=== PATIENT | male | born 1960 | race Two or more races ===

== ENCOUNTER 2018-06-14 10:37 | Inpatient (IN) | payer OTHER, BC ==
[~2018-06-14] VITALS: Ht 180.3 cm; Wt 108.9 kg
[~2018-06-14 10:37] MED LIST: ASPI-231 PO; CARV25TA PO; CINACALCET; FURO80TA PO; INSUINJ37 SC; LIDOCAINE CREAM; MULT-48; SEVE800T8 PO; SITA25TA3 PO
[2018-06-14] MEDS ORDERED: ONDANSETRON HCL 4 MG/2 ML VIAL IV ONE (11:15)
[2018-06-14 11:26] LABS: Basophils # (auto) 0 uL; Basophils % (auto) 0.3 % (0.0-2.0); Eosinophils # (auto) 0 uL; Eosinophils % (auto) 0.4 % (0.0-7.0); Hematocrit 33.9 % (41.0-53.0); Hemoglobin 12.1 g/dL (13.5-17.5); Lymphocytes # (auto) 0.3 uL; Lymphocytes % (auto) 6.6 % (10.0-50.0); Mean Corpuscular Hemoglobin 33.4 pg (28.0-32.0); Mean Corpuscular Hgb Conc. 35.5 g/dL (32.0-36.0); Mean Corpuscular Volume 94.1 fL (80.0-100.0); Monocytes # (auto) 0.4 uL; Monocytes % (auto) 8.2 % (0.0-12.0); Neutrophils # (auto) 4.3 uL; Neutrophils % (auto) 84.5 % (37.0-80.0); Nucleated Red Blood Cells % 0.1 %; Platelet Count (auto) 123 10^3/uL (140-450); Red Blood Cells 3.61 10^6/uL (4.5-5.90); Red Cell Distribution Width 13.2 % (11.8-14.3)
[2018-06-14 11:44] LABS: Albumin 3.8 g/dL (3.4-5.0); BUN/Creatinine Ratio 4.1; Bilirubin, Total 1.6 mg/dL (0.2-1.0); Calcium 8.2 mg/dL (8.5-10.1); Magnesium 2.1 mg/dL (1.6-2.6); Potassium 3.7 mmol/L (3.5-5.1); Total Protein 8.2 g/dL (6.4-8.2)
[2018-06-14] MEDS ORDERED: ACETAMINOPHEN 500 MG TAB PO ONE (12:00)
[2018-06-14 13:05] VITALS: BP 105/53
[2018-06-14] MEDS ORDERED: VANCOMYCIN PER PHARMACY 0 MG IV SCH (13:45)
[2018-06-14] MEDS ORDERED: DEXTROSE (50%) 50ML SYRG IV PRN (13:45)
[2018-06-14] MEDS ORDERED: cefTRIAXone 1GM/10ml IVPUSH 10 ML IV ONE (13:45)
[2018-06-14] MEDS ORDERED: SODIUM CHLORIDE 0.9% 1,000 ML IV SCH (13:50)
[2018-06-14] MEDS ORDERED: ACETAMINOPHEN 325 MG TAB PO PRN (14:00)
[2018-06-14] MEDS ORDERED: ONDANSETRON HCL 4 MG/2 ML VIAL IV PRN (14:00)
[2018-06-14] MEDS ORDERED: NITROGLYCERIN 0.4 MG SL TAB SL PRN (14:00)
[2018-06-14] MEDS ORDERED: DOCUSATE SOD 100 MG CAP PO PRN (14:00)
[2018-06-14] MEDS ORDERED: TEMAZEPAM 15 MG CAP PO PRN (14:00)
[2018-06-14] MEDS ORDERED: HYDROcodone-ACET 5/325MG TAB PO PRN (14:00)
[2018-06-14] MEDS ORDERED: LIDOCAINE HCL 5 % TOP OINT 35 GM TOP PRN (14:00)
[2018-06-14] MEDS ORDERED: MORPHINE SULF INJ 2 MG/ML SYRINGE 1ML IV PRN ×2 (14:00)
[2018-06-14] MEDS ORDERED: VANCOMYCIN 1,250 MG in D5W 5% 250 ML IV ONE (14:30)
[2018-06-14] MEDS ORDERED: FAMOTIDINE 20 MG TAB PO SCH (14:30)
[2018-06-14] MEDS ORDERED: InsuLIN REG 1unit/0.01ml Soln (100units/ml) SC SCH (17:00)
[2018-06-14] MEDS ORDERED: ACCU-CHEK COMFORT CURVE STRIP VI SCH (17:00)
[2018-06-14] MEDS ORDERED: CALCIUM ACETATE 667 MG CAP PO SCH (18:00)
[2018-06-14] MEDS ORDERED: SEVELAMER 800 MG TAB PO SCH (18:00)
[2018-06-14] MEDS ORDERED: CITALOPRAM HYDROBR 20 MG TAB PO SCH (22:00)
[2018-06-14] MEDS ORDERED: ATORVASTATIN 20 MG TAB PO SCH (22:00)
[2018-06-15] MEDS ORDERED: cefTRIAXone 1GM/10ml IVPUSH 10 ML IV SCH (09:00)
[2018-06-15] MEDS ORDERED: MULTIPLE VITAMIN TAB PO SCH (10:00)
[2018-06-15] MEDS ORDERED: NIFEdipine ER 30 MG TAB PO SCH (10:00)
[2018-06-15] MEDS ORDERED: ASPirin-EC 81 mg tab PO SCH (10:00)
[2018-06-15] MEDS ORDERED: FUROSEMIDE 40 MG TAB PO SCH (10:00)
== END 2018-06-14 21:10 | disposition left against medical advice (07) | DRG 871 ==
LOC: EDBD 10:37 → ER 10:37 → TELE 10:38 → TELE-CENTR 20:51
PROVIDERS: ADMIT Internal Medicine; ATTEND Internal Medicine
DX: A41.9 Sepsis, unspecified organism (principal); N18.6 End stage renal disease; I13.2 Hypertensive heart and chronic kidney disease with heart failure and with stage 5 chronic kidney disease, or end stage renal disease; I48.92 Unspecified atrial flutter; I50.32 Chronic diastolic (congestive) heart failure; D63.8 Anemia in other chronic diseases classified elsewhere; E11.21 Type 2 diabetes mellitus with diabetic nephropathy; E11.22 Type 2 diabetes mellitus with diabetic chronic kidney disease; E83.51 Hypocalcemia; E86.0 Dehydration; F32.9 Major depressive disorder, single episode, unspecified; I70.90 Unspecified atherosclerosis; I25.10 Atherosclerotic heart disease of native coronary artery without angina pectoris; T62.8X1A Toxic effect of other specified noxious substances eaten as food, accidental (unintentional), initial encounter; I48.91 Unspecified atrial fibrillation; K52.9 Noninfective gastroenteritis and colitis, unspecified; N28.1 Cyst of kidney, acquired; Z80.7 Family history of other malignant neoplasms of lymphoid, hematopoietic and related tissues; Z82.49 Family history of ischemic heart disease and other diseases of the circulatory system; Z83.3 Family history of diabetes mellitus; I25.2 Old myocardial infarction; Z95.1 Presence of aortocoronary bypass graft; Z99.2 Dependence on renal dialysis; Z90.49 Acquired absence of other specified parts of digestive tract; Z88.8 Allergy status to other drugs, medicaments and biological substances; Z79.899 Other long term (current) drug therapy; Z79.82 Long term (current) use of aspirin; Y92.89 Other specified places as the place of occurrence of the external cause
CPT/HCPCS: 36415; 71045; 74176; 80053; 83036; 83605; 83690; 83735; 83880; 84443; 84484; 85025; 87040; 87077; 87186; 93005; 94761; 96361; 96374; 96375; J0696; J2405; J7060

== ENCOUNTER 2019-12-14 10:05 | Inpatient (IN) | payer OTHER, BC ==
[~2019-12-14] VITALS: Ht 180.3 cm; Wt 121.8 kg
[~2019-12-14 10:05] MED LIST changes: +FURO1TAB32 PO; -FURO80TA PO
[2019-12-14] MEDS ORDERED: dilTIAZem 25 MG/5 ML VIAL IV ONE (10:45)
[2019-12-14] MEDS ORDERED: SODIUM CHLORIDE 0.9% 1,000 ML IV ONE (10:52)
[2019-12-14 11:21] LABS: Basophils # (auto) 0 uL; Basophils % (auto) 0.4 % (0.0-2.0); Eosinophils # (auto) 0.2 uL; Eosinophils % (auto) 1.6 % (0.0-7.0); Hematocrit 33.2 % (41.0-53.0); Hemoglobin 11.3 g/dL (13.5-17.5); Lymphocytes # (auto) 0.6 uL; Mean Corpuscular Hgb Conc. 34.1 g/dL (32.0-36.0); Mean Corpuscular Volume 93.8 fL (80.0-100.0); Monocytes # (auto) 0.8 uL; Monocytes % (auto) 8.3 % (0.0-12.0); Neutrophils # (auto) 8.6 uL; Neutrophils % (auto) 83.7 % (37.0-80.0); Nucleated Red Blood Cells % 0.1 %; Platelet Count (auto) 215 10^3/uL (140-450); Red Blood Cells 3.54 10^6/uL (4.5-5.90); Red Cell Distribution Width 13.2 % (11.8-14.3); White Blood Cell 10.2 10^3/uL (4.4-10.8)
[2019-12-14 11:39] LABS: Albumin 2.8 g/dL (3.4-5.0); Calcium 7.8 mg/dL (8.5-10.1); INR 1.18 (0.9-1.15); Partial Thromboplastin Time 42.4 sec (23.64-32.05); Potassium 3.5 mmol/L (3.5-5.1)
[2019-12-14 11:43] LABS: Bilirubin, Total 1.5 mg/dL (0.2-1.0); Total Protein 7.3 g/dL (6.4-8.2)
[2019-12-14] MEDS: MAGNESIUM SULFATE 1GM/100ML 100 ML IV SCH ×2 (11:46→12:57)
[2019-12-14 11:48] LABS: Magnesium 1.9 mg/dL (1.6-2.6)
[2019-12-14] MEDS ORDERED: OSELTAMIVIR 30 MG CAP PO ONE (14:00)
[2019-12-14] MEDS ORDERED: TEMAZEPAM 15 MG CAP PO PRN (14:00)
[2019-12-14] MEDS ORDERED: AMIODARONE HCL 150 MG in D5W 5% 100 ML IV ONE (14:00)
[2019-12-14] MEDS ORDERED: DEXTROSE (50%) 50ML SYRG IV PRN (14:00)
[2019-12-14] MEDS ORDERED: cefTRIAXone 1GM/50ML D5W 50 ML IV ONE (14:00)
[2019-12-14] MEDS ORDERED: ACETAMINOPHEN 500 MG TAB PO PRN (14:00)
[2019-12-14] MEDS ORDERED: ALBUTEROL SULF 2.5 MG/0.5ML(0.5%) NEB SOLN NEB PRN (14:00)
[2019-12-14] MEDS ORDERED: NITROGLYCERIN 0.4 MG SL TAB SL PRN (14:00)
[2019-12-14] MEDS ORDERED: AZITHROMYCIN 500MG/ 250ML 250 ML IV ONE ×2 (14:00→15:00)
[2019-12-14] MEDS ORDERED: MORPHINE SULF INJ 2 MG/ML SYRINGE 1ML IV PRN ×2 (14:00)
[2019-12-14] MEDS ORDERED: ADENOSINE 6 MG/2 ML INJ IV ONE (14:00)
[2019-12-14] MEDS ORDERED: AMIODARONE HCL 900 MG in DEXTROSE 500 ML IV SCH (14:07)
[2019-12-14 14:12] VITALS: BP 98/59
[2019-12-14] MEDS: SODIUM CHLOR 0.9% PF (SALINE LOCK) 10ML VIAL/SYR IV SCH ×2 (14:17→21:56)
[2019-12-14] MEDS ORDERED: IOHEXOL 350 MG/ML 100ML IJ ONE (15:19)
[2019-12-14 15:24] LABS: Basophils # (auto) 0 uL; Basophils % (auto) 0.5 % (0.0-2.0); Eosinophils # (auto) 0.1 uL; Eosinophils % (auto) 1.8 % (0.0-7.0); Hemoglobin 10.6 g/dL (13.5-17.5); Lymphocytes # (auto) 0.5 uL; Lymphocytes % (auto) 5.7 % (10.0-50.0); Mean Corpuscular Hemoglobin 33.4 pg (28.0-32.0); Mean Corpuscular Hgb Conc. 35.3 g/dL (32.0-36.0); Mean Corpuscular Volume 94.5 fL (80.0-100.0); Monocytes # (auto) 0.7 uL; Neutrophils # (auto) 6.8 uL; Nucleated Red Blood Cells % 0.1 %; Platelet Count (auto) 180 10^3/uL (140-450); Red Blood Cells 3.17 10^6/uL (4.5-5.90); Red Cell Distribution Width 13.2 % (11.8-14.3); White Blood Cell 8.2 10^3/uL (4.4-10.8)
[2019-12-14 15:42] LABS: INR 1.22 (0.9-1.15); Partial Thromboplastin Time 43.1 sec (23.64-32.05)
[2019-12-14 16:15] VITALS: BP 159/88
[2019-12-14] MEDS: ACCU-CHEK COMFORT CURVE STRIP VI SCH ×2 (17:09→21:23)
[2019-12-14] MEDS: HEPARIN DRIP/D5W 100UNITS/ML 250 ML IV SCH (17:17)
[2019-12-14] MEDS: InsuLIN REG 1unit/0.01ml Soln (100units/ml) SC SCH ×2 (17:23→21:57)
[2019-12-14] MEDS: ALBUTEROL SULF 2.5 MG/0.5ML(0.5%) NEB SOLN NEB SCH (18:17)
[2019-12-14] MEDS: IPRATROPIUM BROM 0.5 MG/2.5ML INH SOL NEB SCH (18:17)
[2019-12-14] MEDS ORDERED: ATOR40TA52 PO (19:01)
[2019-12-14] MEDS ORDERED: FURO1TAB31 PO (19:02)
[2019-12-14] MEDS ORDERED: NIFE1TAB31 PO (19:02)
[2019-12-14] MEDS ORDERED: DRON400T PO (19:02)
[2019-12-14] MEDS ORDERED: SEVE800T8 PO (19:02)
[2019-12-14] MEDS ORDERED: VENL25TA2 PO (19:02)
[2019-12-14] MEDS ORDERED: METO25TA93 PO (19:02)
[2019-12-14] MEDS ORDERED: APIX2.5T PO (19:02)
[2019-12-14 20:09] VITALS: BP 107/62
[2019-12-14 20:24] LABS: INR 1.29 (0.9-1.15)
[2019-12-14 20:27] LABS: Partial Thromboplastin Time > 139.0 sec (23.64-32.05)
[2019-12-14] MEDS: ATORVASTATIN 20 MG TAB PO SCH (21:56)
[2019-12-14] MEDS: INSULIN LANTUS (GLARGINE) 1 /0.01ml (100units/ml) SC SCH (21:57)
[2019-12-14] MEDS ORDERED: APIXABAN 5 MG TAB PO SCH (22:00)
[2019-12-14] MEDS ORDERED: OSELTAMIVIR 30 MG CAP PO SCH (22:00)
[2019-12-14] MEDS: AMIODARONE HCL 900 MG in DEXTROSE 500 ML IV SCH (22:18)
[2019-12-15] VITALS: BP_SYST 108; BP_SYST 118; BP_DIAS 63; BP_DIAS 98
[2019-12-15] MEDS: ALBUTEROL SULF 2.5 MG/0.5ML(0.5%) NEB SOLN NEB SCH ×4 (00:10→19:25)
[2019-12-15] MEDS: IPRATROPIUM BROM 0.5 MG/2.5ML INH SOL NEB SCH ×4 (00:10→19:24)
[2019-12-15 03:18] LABS: Partial Thromboplastin Time > 139.0 sec (23.64-32.05)
[2019-12-15 03:37] VITALS: BP 149/87
[2019-12-15] MEDS: HEPARIN DRIP/D5W 100UNITS/ML 250 ML IV SCH ×2 (03:43→11:29)
[2019-12-15] MEDS: SODIUM CHLOR 0.9% PF (SALINE LOCK) 10ML VIAL/SYR IV SCH ×3 (06:04→22:31)
[2019-12-15] MEDS: ACCU-CHEK COMFORT CURVE STRIP VI SCH ×4 (06:38→22:30)
[2019-12-15] MEDS: InsuLIN REG 1unit/0.01ml Soln (100units/ml) SC SCH ×4 (06:39→22:31)
[2019-12-15 07:40] VITALS: BP 127/74
[2019-12-15] MEDS: SEVELAMER 800 MG TAB PO SCH (08:35)
[2019-12-15] MEDS: SITAGLIPTIN PHOSPHATE 25 MG PO SCH (10:00)
[2019-12-15] MEDS ORDERED: OPTISON 3ml Vial for INJ IV ONE (10:06)
[2019-12-15 10:31] LABS: Basophils # (auto) 0 uL; Basophils % (auto) 0.6 % (0.0-2.0); Eosinophils # (auto) 0.3 uL; Eosinophils % (auto) 4.1 % (0.0-7.0); Hematocrit 28.4 % (41.0-53.0); Hemoglobin 9.6 g/dL (13.5-17.5); Lymphocytes # (auto) 0.5 uL; Lymphocytes % (auto) 6.8 % (10.0-50.0); Mean Corpuscular Hemoglobin 32.1 pg (28.0-32.0); Mean Corpuscular Hgb Conc. 33.8 g/dL (32.0-36.0); Monocytes # (auto) 0.7 uL; Monocytes % (auto) 8.9 % (0.0-12.0); Neutrophils # (auto) 5.9 uL; Neutrophils % (auto) 79.6 % (37.0-80.0); Platelet Count (auto) 189 10^3/uL (140-450); Red Blood Cells 2.99 10^6/uL (4.5-5.90); Red Cell Distribution Width 13.1 % (11.8-14.3); White Blood Cell 7.4 10^3/uL (4.4-10.8)
[2019-12-15] MEDS: ASPirin 81 mg TAB PO SCH (10:52)
[2019-12-15] MEDS: CARVEDILOL 12.5 MG TAB PO SCH (10:52)
[2019-12-15] MEDS: FUROSEMIDE 40 MG/4 ML VIAL IV SCH (10:52)
[2019-12-15 10:55] LABS: Albumin 2.5 g/dL (3.4-5.0); BUN/Creatinine Ratio 4.7; Calcium 7.6 mg/dL (8.5-10.1); Potassium 3.9 mmol/L (3.5-5.1)
[2019-12-15 10:59] LABS: Bilirubin, Total 0.9 mg/dL (0.2-1.0); Total Protein 6.7 g/dL (6.4-8.2)
[2019-12-15] MEDS: NITROGLYCERIN 0.2MG/HR TOPICAL PATCH TD SCH (11:01)
[2019-12-15 11:21] LABS: INR 1.15 (0.9-1.15); Partial Thromboplastin Time 43.7 sec (23.64-32.05)
[2019-12-15 11:45] VITALS: BP 141/65
[2019-12-15 15:50] VITALS: BP 126/75
[2019-12-15] MEDS: AMIODARONE HCL 900 MG in DEXTROSE 500 ML IV SCH (18:04)
[2019-12-15 20:00] VITALS: BP 131/82
[2019-12-15 22:25] LABS: INR 1.14 (0.9-1.15); Partial Thromboplastin Time 50.2 sec (23.64-32.05)
[2019-12-15] MEDS: ATORVASTATIN 20 MG TAB PO SCH (22:31)
[2019-12-15] MEDS: INSULIN LANTUS (GLARGINE) 1 /0.01ml (100units/ml) SC SCH (22:31)
[2019-12-16] VITALS: BP 102/56
[2019-12-16] MEDS: IPRATROPIUM BROM 0.5 MG/2.5ML INH SOL NEB SCH ×4 (00:52→18:50)
[2019-12-16] MEDS: ALBUTEROL SULF 2.5 MG/0.5ML(0.5%) NEB SOLN NEB SCH ×4 (00:52→18:50)
[2019-12-16 04:02] VITALS: BP 102/56
[2019-12-16] MEDS: HEPARIN DRIP/D5W 100UNITS/ML 250 ML IV SCH (05:18)
[2019-12-16 05:30] LABS: Basophils # (auto) 0 uL; Basophils % (auto) 0.6 % (0.0-2.0); Eosinophils # (auto) 0.4 uL; Eosinophils % (auto) 5.6 % (0.0-7.0); Hematocrit 25.3 % (41.0-53.0); Hemoglobin 8.8 g/dL (13.5-17.5); Lymphocytes # (auto) 0.7 uL; Lymphocytes % (auto) 10.6 % (10.0-50.0); Mean Corpuscular Hemoglobin 32.4 pg (28.0-32.0); Mean Corpuscular Hgb Conc. 34.5 g/dL (32.0-36.0); Mean Corpuscular Volume 93.8 fL (80.0-100.0); Monocytes # (auto) 0.7 uL; Monocytes % (auto) 10.7 % (0.0-12.0); Neutrophils % (auto) 72.5 % (37.0-80.0); Nucleated Red Blood Cells % 0.2 %; Platelet Count (auto) 192 10^3/uL (140-450); White Blood Cell 6.9 10^3/uL (4.4-10.8)
[2019-12-16 05:41] LABS: INR 1.13 (0.9-1.15); Partial Thromboplastin Time 54.8 sec (23.64-32.05)
[2019-12-16 05:53] LABS: Potassium 4.1 mmol/L (3.5-5.1)
[2019-12-16 06:03] LABS: BUN/Creatinine Ratio 5.3; Calcium 7.4 mg/dL (8.5-10.1); Magnesium 2.1 mg/dL (1.6-2.6)
[2019-12-16] MEDS: SODIUM CHLOR 0.9% PF (SALINE LOCK) 10ML VIAL/SYR IV SCH ×3 (06:18→22:38)
[2019-12-16] MEDS: InsuLIN REG 1unit/0.01ml Soln (100units/ml) SC SCH ×4 (06:34→22:41)
[2019-12-16] MEDS: ACCU-CHEK COMFORT CURVE STRIP VI SCH ×4 (06:34→22:41)
[2019-12-16 07:46] VITALS: BP 122/77
[2019-12-16] MEDS: SEVELAMER 800 MG TAB PO SCH (08:00)
[2019-12-16] MEDS: SITAGLIPTIN PHOSPHATE 25 MG PO SCH (10:00)
[2019-12-16] MEDS: CARVEDILOL 12.5 MG TAB PO SCH ×2 (10:00→10:48)
[2019-12-16] MEDS: ASPirin 81 mg TAB PO SCH ×2 (10:00→10:47)
[2019-12-16] MEDS: FUROSEMIDE 40 MG/4 ML VIAL IV SCH (10:45)
[2019-12-16] MEDS: NITROGLYCERIN 0.2MG/HR TOPICAL PATCH TD SCH (10:46)
[2019-12-16 11:39] LABS: INR 1.14 (0.9-1.15)
[2019-12-16 11:40] VITALS: BP 125/77
[2019-12-16] MEDS ORDERED: AMIODARONE HCL 200 MG TAB PO ONE (15:30)
[2019-12-16 15:35] VITALS: BP 129/78
[2019-12-16 20:00] VITALS: BP 142/82
[2019-12-16] MEDS ORDERED: VENLAFAXINE HCL 37.5mg XR cap PO SCH (21:00)
[2019-12-16] MEDS ORDERED: METOPROLOL TARTRATE 25 MG TAB PO SCH (22:00)
[2019-12-16] MEDS ORDERED: APIXABAN 2.5 MG TAB PO SCH (22:00)
[2019-12-16] MEDS: AMIODARONE HCL 900 MG in DEXTROSE 500 ML IV SCH (22:38)
[2019-12-16] MEDS: AMIODARONE HCL 200 MG TAB PO SCH (22:38)
[2019-12-16] MEDS: ATORVASTATIN 20 MG TAB PO SCH (22:39)
[2019-12-16] MEDS: INSULIN LANTUS (GLARGINE) 1 /0.01ml (100units/ml) SC SCH (22:41)
[2019-12-17] VITALS (7 sets, daily range): BP systolic 106–144; BP diastolic 67–86
[2019-12-17] MEDS: IPRATROPIUM BROM 0.5 MG/2.5ML INH SOL NEB SCH ×4 (00:55→18:00)
[2019-12-17] MEDS: ALBUTEROL SULF 2.5 MG/0.5ML(0.5%) NEB SOLN NEB SCH ×4 (00:55→18:00)
[2019-12-17] MEDS: traMADol HCL 50 MG TAB PO PRN ×2 (05:09→21:37)
[2019-12-17 05:52] LABS: Basophils # (auto) 0.1 10 ^3/uL (0-0.2); Basophils % (auto) 1.1 % (0.0-2.0); Eosinophils # (auto) 0.3 10 ^3/uL (0-0.8); Eosinophils % (auto) 4.9 % (0.0-7.0); Hematocrit 25.2 % (41.0-53.0); Hemoglobin 8.8 g/dL (13.5-17.5); Lymphocytes # (auto) 0.5 10 ^3/uL (0.4-5.4); Mean Corpuscular Hemoglobin 32.6 pg (28.0-32.0); Mean Corpuscular Hgb Conc. 34.8 g/dL (32.0-36.0); Mean Corpuscular Volume 93.7 fL (80.0-100.0); Monocytes # (auto) 0.8 10 ^3/uL (0-1.3); Monocytes % (auto) 11.6 % (0.0-12.0); Neutrophils # (auto) 4.9 10 ^3/uL (1.6-8.6); Neutrophils % (auto) 75.4 % (37.0-80.0); Platelet Count (auto) 221 10^3/uL (140-450); Red Blood Cells 2.69 10^6/uL (4.5-5.90); Red Cell Distribution Width 13.3 % (11.8-14.3); White Blood Cell 6.5 10^3/uL (4.4-10.8)
[2019-12-17] MEDS: SODIUM CHLOR 0.9% PF (SALINE LOCK) 10ML VIAL/SYR IV SCH ×3 (06:05→21:39)
[2019-12-17] MEDS: PROMETHAZINE HCL 25 MG/ML 1ML IV PRN (06:05)
[2019-12-17 06:06] LABS: INR 1.17 (0.9-1.15)
[2019-12-17 06:07] LABS: BUN/Creatinine Ratio 5.5; Calcium 7.8 mg/dL (8.5-10.1); Magnesium 2.3 mg/dL (1.6-2.6); Potassium 4.5 mmol/L (3.5-5.1)
[2019-12-17] MEDS: ACCU-CHEK COMFORT CURVE STRIP VI SCH ×4 (06:10→21:40)
[2019-12-17] MEDS: InsuLIN REG 1unit/0.01ml Soln (100units/ml) SC SCH ×4 (06:10→21:40)
[2019-12-17] MEDS ORDERED: SODIUM CHL 0.9% 1000 ML BAG XX ONE (07:00)
[2019-12-17] MEDS: SEVELAMER 800 MG TAB PO SCH (08:00)
[2019-12-17] MEDS ORDERED: LIDOCAINE VISCOUS 2% 15ML UD PO ONE (08:15)
[2019-12-17] MEDS ORDERED: MIDAZOLAM HCL 1MG/1ML-2 ML VIAL ONE (08:28)
[2019-12-17] MEDS ORDERED: fentaNYL CITRATE 100 MCG/2 ML VL ONE (08:28)
[2019-12-17] MEDS ORDERED: fentaNYL CITRATE 100 MCG/2 ML VL IV ONE (08:30)
[2019-12-17] MEDS ORDERED: MIDAZOLAM HCL 1MG/1ML-2 ML VIAL IV ONE (08:30)
[2019-12-17] MEDS: FUROSEMIDE 40 MG/4 ML VIAL IV SCH (09:59)
[2019-12-17] MEDS: NITROGLYCERIN 0.2MG/HR TOPICAL PATCH TD SCH (10:00)
[2019-12-17] MEDS: METOPROLOL TARTRATE 25 MG TAB PO SCH ×2 (10:00→21:37)
[2019-12-17] MEDS: SITAGLIPTIN PHOSPHATE 25 MG PO SCH (10:00)
[2019-12-17] MEDS: APIXABAN 5 MG TAB PO SCH ×2 (12:02→21:38)
[2019-12-17] MEDS: ASPirin 81 mg TAB PO SCH (12:02)
[2019-12-17] MEDS: AMIODARONE HCL 200 MG TAB PO SCH ×2 (12:03→21:39)
[2019-12-17] MEDS ORDERED: EPOETIN ALFA 10,000 UNIT/1 ML VIAL SC ONE (21:00)
[2019-12-17] MEDS: VENLAFAXINE HCL 37.5mg XR cap PO SCH (21:38)
[2019-12-17] MEDS: ATORVASTATIN 20 MG TAB PO SCH (21:38)
[2019-12-17] MEDS: INSULIN LANTUS (GLARGINE) 1 /0.01ml (100units/ml) SC SCH (21:40)
[2019-12-18] VITALS: BP 118/82
[2019-12-18] MEDS: IPRATROPIUM BROM 0.5 MG/2.5ML INH SOL NEB SCH ×4 (00:30→17:49)
[2019-12-18] MEDS: ALBUTEROL SULF 2.5 MG/0.5ML(0.5%) NEB SOLN NEB SCH ×4 (00:30→17:49)
[2019-12-18] MEDS: AMIODARONE HCL 900 MG in DEXTROSE 500 ML IV SCH (01:48)
[2019-12-18 04:00] VITALS: BP 127/78
[2019-12-18] MEDS: traMADol HCL 50 MG TAB PO PRN (04:00)
[2019-12-18] MEDS: ACCU-CHEK COMFORT CURVE STRIP VI SCH ×4 (06:29→22:28)
[2019-12-18] MEDS: SODIUM CHLOR 0.9% PF (SALINE LOCK) 10ML VIAL/SYR IV SCH ×3 (06:29→22:38)
[2019-12-18] MEDS: InsuLIN REG 1unit/0.01ml Soln (100units/ml) SC SCH ×4 (06:29→22:30)
[2019-12-18 08:00] VITALS: BP 138/87
[2019-12-18] MEDS: SEVELAMER 800 MG TAB PO SCH (09:00)
[2019-12-18] MEDS: FUROSEMIDE 40 MG/4 ML VIAL IV SCH (09:52)
[2019-12-18] MEDS: ASPirin 81 mg TAB PO SCH (09:53)
[2019-12-18] MEDS: NITROGLYCERIN 0.2MG/HR TOPICAL PATCH TD SCH (09:53)
[2019-12-18] MEDS: AMIODARONE HCL 200 MG TAB PO SCH ×2 (09:54→22:38)
[2019-12-18] MEDS: APIXABAN 5 MG TAB PO SCH ×2 (09:55→22:39)
[2019-12-18] MEDS: SITAGLIPTIN PHOSPHATE 25 MG PO SCH (09:55)
[2019-12-18] MEDS: METOPROLOL TARTRATE 25 MG TAB PO SCH ×2 (10:00→22:49)
[2019-12-18 12:00] VITALS: BP 127/82
[2019-12-18 15:54] VITALS: BP 112/73
[2019-12-18 20:00] VITALS: BP 100/63
[2019-12-18] MEDS: INSULIN LANTUS (GLARGINE) 1 /0.01ml (100units/ml) SC SCH (22:30)
[2019-12-18] MEDS: ATORVASTATIN 20 MG TAB PO SCH (22:40)
[2019-12-18] MEDS: VENLAFAXINE HCL 37.5mg XR cap PO SCH (22:50)
[2019-12-19] VITALS: BP 125/41
[2019-12-19] MEDS: IPRATROPIUM BROM 0.5 MG/2.5ML INH SOL NEB SCH ×4 (00:23→18:22)
[2019-12-19] MEDS: ALBUTEROL SULF 2.5 MG/0.5ML(0.5%) NEB SOLN NEB SCH ×4 (00:23→18:22)
[2019-12-19 04:00] VITALS: BP 112/64
[2019-12-19] MEDS: traMADol HCL 50 MG TAB PO PRN (04:24)
[2019-12-19] MEDS: PROMETHAZINE HCL 25 MG/ML 1ML IV PRN ×2 (04:24→23:43)
[2019-12-19] MEDS: AMIODARONE HCL 900 MG in DEXTROSE 500 ML IV SCH ×2 (05:49→20:07)
[2019-12-19] MEDS: SODIUM CHLOR 0.9% PF (SALINE LOCK) 10ML VIAL/SYR IV SCH ×3 (05:50→21:16)
[2019-12-19] MEDS: ACCU-CHEK COMFORT CURVE STRIP VI SCH ×4 (06:07→21:18)
[2019-12-19] MEDS: InsuLIN REG 1unit/0.01ml Soln (100units/ml) SC SCH ×4 (06:08→21:19)
[2019-12-19] MEDS ORDERED: SODIUM CHL 0.9% 1000 ML BAG XX ONE (07:00)
[2019-12-19 08:00] VITALS: BP 115/73
[2019-12-19] MEDS: SEVELAMER 800 MG TAB PO SCH (08:00)
[2019-12-19] MEDS: SITAGLIPTIN PHOSPHATE 25 MG PO SCH (10:00)
[2019-12-19] MEDS: AMIODARONE HCL 200 MG TAB PO SCH ×2 (10:00→21:17)
[2019-12-19 12:00] VITALS: BP 132/97
[2019-12-19] MEDS: FUROSEMIDE 40 MG/4 ML VIAL IV SCH (13:35)
[2019-12-19] MEDS: METOPROLOL TARTRATE 25 MG TAB PO SCH (13:36)
[2019-12-19] MEDS: ASPirin 81 mg TAB PO SCH (13:36)
[2019-12-19] MEDS: APIXABAN 5 MG TAB PO SCH ×2 (13:36→21:17)
[2019-12-19] MEDS: NITROGLYCERIN 0.2MG/HR TOPICAL PATCH TD SCH (13:37)
[2019-12-19] MEDS ORDERED: dilTIAZem 120MG ER CAP PO ONE (15:15)
[2019-12-19 15:55] VITALS: BP 127/90
[2019-12-19 20:00] VITALS: BP 96/55
[2019-12-19] MEDS ORDERED: EPOETIN ALFA 10,000 UNIT/1 ML VIAL SC ONE (21:00)
[2019-12-19] MEDS: VENLAFAXINE HCL 37.5mg XR cap PO SCH (21:17)
[2019-12-19] MEDS: ATORVASTATIN 20 MG TAB PO SCH (21:18)
[2019-12-19] MEDS: INSULIN LANTUS (GLARGINE) 1 /0.01ml (100units/ml) SC SCH (21:18)
[2019-12-19] MEDS: METOPROLOL TARTRATE 50 MG TAB PO SCH (21:18)
[2019-12-20] VITALS (7 sets, daily range): BP systolic 93–150; BP diastolic 46–74
[2019-12-20] MEDS: PROMETHAZINE HCL 25 MG/ML 1ML IV PRN (05:08)
[2019-12-20] MEDS: METOPROLOL TARTRATE 50 MG TAB PO SCH ×2 (05:21→12:19)
[2019-12-20] MEDS: ACCU-CHEK COMFORT CURVE STRIP VI SCH ×4 (05:24→20:34)
[2019-12-20] MEDS: InsuLIN REG 1unit/0.01ml Soln (100units/ml) SC SCH ×4 (05:25→21:05)
[2019-12-20] MEDS: SODIUM CHLOR 0.9% PF (SALINE LOCK) 10ML VIAL/SYR IV SCH ×3 (05:26→21:01)
[2019-12-20 05:38] LABS: Basophils # (auto) 0.1 10 ^3/uL (0-0.2); Basophils % (auto) 0.8 % (0.0-2.0); Eosinophils # (auto) 0 10 ^3/uL (0-0.8); Eosinophils % (auto) 0.5 % (0.0-7.0); Hemoglobin 8.8 g/dL (13.5-17.5); Lymphocytes # (auto) 0.5 10 ^3/uL (0.4-5.4); Lymphocytes % (auto) 6.2 % (10.0-50.0); Mean Corpuscular Hgb Conc. 33.9 g/dL (32.0-36.0); Mean Corpuscular Volume 94.3 fL (80.0-100.0); Monocytes # (auto) 0.7 10 ^3/uL (0-1.3); Monocytes % (auto) 8.4 % (0.0-12.0); Neutrophils # (auto) 6.5 10 ^3/uL (1.6-8.6); Neutrophils % (auto) 84.1 % (37.0-80.0); Platelet Count (auto) 156 10^3/uL (140-450); Red Blood Cells 2.75 10^6/uL (4.5-5.90); Red Cell Distribution Width 13.5 % (11.8-14.3); White Blood Cell 7.8 10^3/uL (4.4-10.8)
[2019-12-20] MEDS: IPRATROPIUM BROM 0.5 MG/2.5ML INH SOL NEB SCH ×5 (06:44→23:31)
[2019-12-20] MEDS: ALBUTEROL SULF 2.5 MG/0.5ML(0.5%) NEB SOLN NEB SCH ×5 (06:44→23:31)
[2019-12-20] MEDS: SEVELAMER 800 MG TAB PO SCH (08:00)
[2019-12-20] MEDS ORDERED: ATROPINE SULFATE 1 MG/1 ML VIAL ONE (08:23)
[2019-12-20] MEDS: AMIODARONE HCL 200 MG TAB PO SCH (09:15)
[2019-12-20] MEDS: NITROGLYCERIN 0.2MG/HR TOPICAL PATCH TD SCH (09:17)
[2019-12-20] MEDS: SITAGLIPTIN PHOSPHATE 25 MG PO SCH (09:23)
[2019-12-20] MEDS: FUROSEMIDE 40 MG/4 ML VIAL IV SCH (09:25)
[2019-12-20] MEDS: APIXABAN 5 MG TAB PO SCH ×2 (09:25→21:01)
[2019-12-20] MEDS: ASPirin 81 mg TAB PO SCH (09:26)
[2019-12-20] MEDS ORDERED: dilTIAZem 120MG ER CAP PO SCH (10:00)
[2019-12-20 10:10] LABS: BUN/Creatinine Ratio 5.6; Calcium 7.9 mg/dL (8.5-10.1); Magnesium 2.4 mg/dL (1.6-2.6)
[2019-12-20 10:12] LABS: Potassium 6.3 mmol/L (3.5-5.1)
[2019-12-20] MEDS ORDERED: CALCIUM GLUC 4.65meq/50ml D5AE 50 ML IV ONE (13:30)
[2019-12-20] MEDS ORDERED: InsuLIN REG 1unit/0.01ml Soln (100units/ml) IV ONE (13:30)
[2019-12-20] MEDS ORDERED: DEXTROSE (50%) 50ML SYRG IV ONE (13:30)
[2019-12-20] MEDS: SODIUM ZIRCONIUM CYCL 10 GM PAK PO SCH ×2 (14:26→21:02)
[2019-12-20] MEDS: INSULIN LANTUS (GLARGINE) 1 /0.01ml (100units/ml) SC SCH (20:34)
[2019-12-20] MEDS: ATORVASTATIN 20 MG TAB PO SCH (21:01)
[2019-12-20] MEDS: VENLAFAXINE HCL 37.5mg XR cap PO SCH (21:01)
[2019-12-21] VITALS: BP 135/60
[2019-12-21 04:00] VITALS: BP 133/64
[2019-12-21] MEDS: SODIUM ZIRCONIUM CYCL 10 GM PAK PO SCH (05:48)
[2019-12-21] MEDS: SODIUM CHLOR 0.9% PF (SALINE LOCK) 10ML VIAL/SYR IV SCH ×2 (05:48→14:57)
[2019-12-21] MEDS: InsuLIN REG 1unit/0.01ml Soln (100units/ml) SC SCH ×3 (05:49→17:00)
[2019-12-21] MEDS: ACCU-CHEK COMFORT CURVE STRIP VI SCH ×3 (05:49→18:05)
[2019-12-21] MEDS: IPRATROPIUM BROM 0.5 MG/2.5ML INH SOL NEB SCH ×3 (06:46→18:15)
[2019-12-21] MEDS: ALBUTEROL SULF 2.5 MG/0.5ML(0.5%) NEB SOLN NEB SCH ×3 (06:46→18:15)
[2019-12-21] MEDS ORDERED: SODIUM CHL 0.9% 1000 ML BAG XX ONE (07:00)
[2019-12-21 08:00] VITALS: BP 163/71
[2019-12-21] MEDS: SEVELAMER 800 MG TAB PO SCH (08:20)
[2019-12-21] MEDS: AMIODARONE HCL 200 MG TAB PO SCH ×2 (08:21→09:36)
[2019-12-21] MEDS: SITAGLIPTIN PHOSPHATE 25 MG PO SCH (08:22)
[2019-12-21] MEDS: METOPROLOL TARTRATE 25 MG TAB PO SCH ×2 (09:37→19:14)
[2019-12-21] MEDS: NITROGLYCERIN 0.2MG/HR TOPICAL PATCH TD SCH (09:41)
[2019-12-21] MEDS: APIXABAN 5 MG TAB PO SCH (09:45)
[2019-12-21] MEDS: ASPirin 81 mg TAB PO SCH (09:45)
[2019-12-21] MEDS: FUROSEMIDE 40 MG/4 ML VIAL IV SCH (09:45)
[2019-12-21 12:00] VITALS: BP 130/57
[2019-12-21 13:46] VITALS: BP 130/57
[2019-12-21 15:07] LABS: Albumin 2.5 g/dL (3.4-5.0); Calcium 7.3 mg/dL (8.5-10.1)
[2019-12-21 15:17] LABS: BUN/Creatinine Ratio 5.6; Total Protein 7.1 g/dL (6.4-8.2)
[2019-12-21 16:00] VITALS: BP 157/72
[2019-12-21] MEDS ORDERED: EPOETIN ALFA 10,000 UNIT/1 ML VIAL SC ONE (21:00)
== END 2019-12-21 19:55 | disposition home or self-care (01) | DRG 308 ==
LOC: ER 10:05 → EDBD 10:05 → OVERFLOW 10:06 → DOU IN ICU 16:25
PROVIDERS: ADMIT Internal Medicine; ATTEND Internal Medicine Geriatric Medicine
PROC: B24BZZ4 Ultrasonography of Heart with Aorta, Transesophageal (ICD-10-PCS; principal; 2019-12-14)
PROC: 5A1D70Z Performance of Urinary Filtration, Intermittent, Less than 6 Hours Per Day (ICD-10-PCS; 2019-12-17)
PROC: 5A1D70Z Performance of Urinary Filtration, Intermittent, Less than 6 Hours Per Day (ICD-10-PCS; 2019-12-19)
PROC: 5A1D70Z Performance of Urinary Filtration, Intermittent, Less than 6 Hours Per Day (ICD-10-PCS; 2019-12-21)
DX: I48.92 Unspecified atrial flutter (principal); N18.6 End stage renal disease; J96.00 Acute respiratory failure, unspecified whether with hypoxia or hypercapnia; I50.43 Acute on chronic combined systolic (congestive) and diastolic (congestive) heart failure; E44.0 Moderate protein-calorie malnutrition; J81.1 Chronic pulmonary edema; I13.2 Hypertensive heart and chronic kidney disease with heart failure and with stage 5 chronic kidney disease, or end stage renal disease; I48.20 Chronic atrial fibrillation, unspecified; I95.9 Hypotension, unspecified; I47.1 Supraventricular tachycardia; I51.3 Intracardiac thrombosis, not elsewhere classified; Z99.2 Dependence on renal dialysis; Z95.5 Presence of coronary angioplasty implant and graft; E88.89 Other specified metabolic disorders; N18.9 Chronic kidney disease, unspecified; E83.39 Other disorders of phosphorus metabolism; Z68.36 Body mass index [BMI] 36.0-36.9, adult; M89.9 Disorder of bone, unspecified; Z79.01 Long term (current) use of anticoagulants; I44.0 Atrioventricular block, first degree; E87.5 Hyperkalemia; E11.22 Type 2 diabetes mellitus with diabetic chronic kidney disease; D63.1 Anemia in chronic kidney disease; E66.01 Morbid (severe) obesity due to excess calories; I25.10 Atherosclerotic heart disease of native coronary artery without angina pectoris
CPT/HCPCS: 36415; 71045; 71046; 71275; 80048; 80053; 80061; 82550; 82962; 83036; 83735; 83880; 84100; 84443; 84484; 85025; 85379; 85610; 85652; 85730; 87040; 87804; 90935; 93005; 93306; 93312; 94640; 96365; 96366; 96367; 96375; G0378; G9035; J0461; J0610; J0696; J0885; J1642; J1815; J2250; J7060; Q9956

== ENCOUNTER 2020-01-07 10:19 | Inpatient (IN) | payer OTHER, BC ==
[~2020-01-07] VITALS: Ht 180.3 cm; Wt 101.5 kg
[~2020-01-07 10:19] MED LIST changes: +APIX2.5T PO; +ATOR40TA52 PO; +DRON400T PO; +FURO1TAB31 PO; +METO25TA93 PO; +NIFE1TAB31 PO; +VENL25TA2 PO
[2020-01-07] MEDS ORDERED: dilTIAZem 25 MG/5 ML VIAL IV ONE ×3 (10:30→12:45)
[2020-01-07 11:08] LABS: Basophils # (auto) 0.1 10 ^3/uL (0-0.2); Basophils % (auto) 0.9 % (0.0-2.0); Eosinophils # (auto) 0.1 10 ^3/uL (0-0.8); Eosinophils % (auto) 1.7 % (0.0-7.0); Lymphocytes # (auto) 0.3 10 ^3/uL (0.4-5.4); Lymphocytes % (auto) 5.1 % (10.0-50.0); Mean Corpuscular Hgb Conc. 33.2 g/dL (32.0-36.0); Mean Corpuscular Volume 90.6 fL (80.0-100.0); Monocytes # (auto) 0.7 10 ^3/uL (0-1.3); Monocytes % (auto) 11.1 % (0.0-12.0); Neutrophils # (auto) 4.8 10 ^3/uL (1.6-8.6); Neutrophils % (auto) 81.2 % (37.0-80.0); Platelet Count (auto) 200 10^3/uL (140-450); Red Blood Cells 3.31 10^6/uL (4.5-5.90); Red Cell Distribution Width 14.7 % (11.8-14.3); White Blood Cell 5.9 10^3/uL (4.4-10.8)
[2020-01-07] MEDS ORDERED: dilTIAZem 120MG ER CAP PO ONE (11:15)
[2020-01-07 11:24] LABS: Albumin 2.7 g/dL (3.4-5.0); Calcium 7.8 mg/dL (8.5-10.1); Potassium 3.3 mmol/L (3.5-5.1)
[2020-01-07 11:29] LABS: BUN/Creatinine Ratio 2.5
[2020-01-07] MEDS ORDERED: ACETAMINOPHEN 500 MG TAB PO PRN (12:45)
[2020-01-07] MEDS ORDERED: ONDANSETRON HCL 4 MG/2 ML VIAL IV PRN (12:45)
[2020-01-07] MEDS ORDERED: HYDROcodone-ACET 5/325MG TAB PO PRN (12:45)
[2020-01-07] MEDS ORDERED: NITROGLYCERIN 0.4 MG SL TAB SL PRN (12:45)
[2020-01-07] MEDS ORDERED: LABETALOL HCL 5 MG/ML 4ML SYRINGE IV PRN (12:45)
[2020-01-07] MEDS ORDERED: MORPHINE SULF INJ 2 MG/ML SYRINGE 1ML IV PRN ×2 (12:45)
[2020-01-07] MEDS: METOPROLOL TARTRATE 25 MG TAB PO SCH ×2 (13:12→21:05)
--- NOTE | 2020-01-07 14:00 | NUR ---
MS admit from [facility] admitted to tele/MS after SBAR received. Patient oriented to PIETRO FERNANDEZ RN primary RN, TELE unit, room 250, bed B, and unit policies regarding patient care and visiting hours. Patient weighed by bedscale and encouraged to call if they need something. All questions and concerns addressed, patient verbalized understanding.
[2020-01-07 14:16] VITALS: BP 141/79
[2020-01-07 17:00] VITALS: BP 118/50
--- NOTE | 2020-01-07 17:20 | NUR ---
NELIA SISAL PICKER NOTIFIED OF PATIENT STATUS. PATIENT PLACED IN ISOLATION PRECAUTIONS, AND INFECTION CONTROL CALLED.
[2020-01-07] MEDS ORDERED: AZITHROMYCIN 500MG/ 250ML 250 ML IV ONE (17:30)
[2020-01-07] MEDS ORDERED: cefTRIAXone 1GM/50ML D5W 50 ML IV SCH (17:30)
--- NOTE | 2020-01-07 19:00 | NUR ---
Opening Shift Note Assumed care of patient, awake and alert. No S/S of distress/SOB or pain. Instructed on POC and to call for assist PRN, will continue to monitor for changes Q1hr and PRN.
--- NOTE | 2020-01-07 19:07 | NUR ---
COVID SWAB AND INFLUENZA SWAB TAKEN TO LAB BY THIS RN.
--- NOTE | 2020-01-07 19:11 | NUR ---
CARE ENDORSED TO TREY SABA
--- NOTE | 2020-01-07 19:30 | NUR ---
Patient moved from room 250B to room 237.
[2020-01-07 20:45] VITALS: BP 139/69
[2020-01-07] MEDS: ATORVASTATIN 20 MG TAB PO SCH (21:05)
[2020-01-07] MEDS ORDERED: VENLAFAXINE HCL 25MG TABLET PO SCH (22:00)
[2020-01-07] MEDS ORDERED: APIXABAN 5 MG TAB PO SCH (22:00)
[2020-01-08 04:50] VITALS: BP 134/77
--- NOTE | 2020-01-08 06:03 | NUR ---
AM labs: Patient refused AM labs when RN entered room to draw labs. Patient seemed upset and informed RN to come back later and he just wants to rest.
--- NOTE | 2020-01-08 08:10 | NUR ---
Win PETTIT ROUNDING INFROMED OF PATIENT STATUS. INFORMED PATIENT IS STILL IN AFIB WITH RVR IN THE 130'S. QUESTIONED ORDER FOR LASIX 40MG WITH POTASSIUM OF 3.3. STATED OKAY TO GIVE WITH POTASSIUM 20MEQ PO ONE TIME. WILL FOLLOW THROUGH.
[2020-01-08 09:00] VITALS: BP 138/76
[2020-01-08] MEDS: SEVELAMER 800 MG TAB PO SCH ×3 (09:28→18:44)
[2020-01-08] MEDS: cefTRIAXone 1GM/50ML D5W 50 ML IV SCH (09:28)
[2020-01-08] MEDS ORDERED: VENLAFAXINE HCL 37.5MG TABLET PO SCH (10:00)
[2020-01-08] MEDS ORDERED: AZITHROMYCIN 500MG/ 250ML 250 ML IV SCH (10:00)
[2020-01-08] MEDS ORDERED: MULTIPLE VITAMINS W/ MINERALS TAB PO SCH (10:00)
[2020-01-08] MEDS ORDERED: FUROSEMIDE 40 MG TAB PO SCH (10:00)
[2020-01-08] MEDS ORDERED: FAMOTIDINE 20 MG TAB PO SCH (10:00)
[2020-01-08] MEDS ORDERED: VENLAFAXINE HCL 25MG TABLET PO SCH (10:00)
[2020-01-08 11:11] LABS: Basophils # (auto) 0 10 ^3/uL (0-0.2); Basophils % (auto) 0.6 % (0.0-2.0); Eosinophils # (auto) 0 10 ^3/uL (0-0.8); Eosinophils % (auto) 0.5 % (0.0-7.0); Hematocrit 28.9 % (41.0-53.0); Hemoglobin 9.5 g/dL (13.5-17.5); Lymphocytes # (auto) 0.3 10 ^3/uL (0.4-5.4); Lymphocytes % (auto) 4.1 % (10.0-50.0); Mean Corpuscular Hemoglobin 29.7 pg (28.0-32.0); Mean Corpuscular Hgb Conc. 32.7 g/dL (32.0-36.0); Mean Corpuscular Volume 90.6 fL (80.0-100.0); Monocytes # (auto) 0.8 10 ^3/uL (0-1.3); Neutrophils # (auto) 7.1 10 ^3/uL (1.6-8.6); Neutrophils % (auto) 84.8 % (37.0-80.0); Nucleated Red Blood Cells % 0.1 %; Platelet Count (auto) 191 10^3/uL (140-450); Red Blood Cells 3.19 10^6/uL (4.5-5.90); Red Cell Distribution Width 14.9 % (11.8-14.3); White Blood Cell 8.3 10^3/uL (4.4-10.8)
[2020-01-08 11:31] LABS: BUN/Creatinine Ratio 3.4; Calcium 7.4 mg/dL (8.5-10.1); Potassium 5.3 mmol/L (3.5-5.1)
[2020-01-08] MEDS ORDERED: POTASSIUM CHL 20 Meq TABLET PO ONE (12:00)
[2020-01-08] MEDS: VENLAFAXINE HCL 37.5MG TABLET PO SCH ×2 (12:58→23:51)
[2020-01-08] MEDS: APIXABAN 5 MG TAB PO SCH ×2 (12:58→23:52)
[2020-01-08] MEDS: AZITHROMYCIN 500MG/ 250ML 250 ML IV SCH (12:58)
[2020-01-08] MEDS: FUROSEMIDE 40 MG TAB PO SCH (12:59)
[2020-01-08] MEDS: METOPROLOL TARTRATE 25 MG TAB PO SCH ×2 (12:59→23:52)
[2020-01-08] MEDS: MULTIPLE VITAMINS W/ MINERALS TAB PO SCH (13:00)
[2020-01-08] MEDS: FAMOTIDINE 20 MG TAB PO SCH (13:00)
--- NOTE | 2020-01-08 13:25 | NUR ---
Win GRULLON AT BEDSIDE. INFORMED OF PATIENT STATUS. INFORMED PATIENT HAS A-FIB WITH RVR AFTER DIALYSIS. PATIENT CONTINUES ON 3L NC. INFORMED TO PUT PATIENT ON A CONTINUOS PULSE OXIMETER. PER Win GRULLON HE WOULD LOOK BACK AT PREVIOUS DISCHARGE TO SEE WHAT MEDICATIONS TO BE RESTARTED.
[2020-01-08] MEDS ORDERED: AMIODARONE HCL 200 MG TAB PO ONE (13:30)
--- NOTE | 2020-01-08 16:25 | NUR ---
Win ARRIETA AT BEDSIDE.
--- NOTE | 2020-01-08 17:38 | NUR ---
REPAGED CARDIOLOGY CONSULT TO Win TOLLIVER.
--- NOTE | 2020-01-08 19:35 | NUR ---
Patient moved from room 237 to room 233.
--- NOTE | 2020-01-08 19:45 | NUR ---
Patient removed his Zoll life vest. Educated patient on the importance of wearing the devices at all times as ordered. Patient verbalizes understanding, however does not want to replace the vest, stating that while he was in the ER it continued to notify him that it was preparing to shock, leading the Patient to believe that the device is malfunctioning. Patient is on continuous telemetry monitoring and continuous pulse oximetry. MD to be notified of patients concerns regarding his Zoll life vest. Will continue to monitor for changes PRN.
[2020-01-08] MEDS: ATORVASTATIN 20 MG TAB PO SCH (21:40)
[2020-01-08 22:03] VITALS: BP 120/71
[2020-01-09 05:49] VITALS: BP 130/79
[2020-01-09 06:12] LABS: Basophils # (auto) 0 10 ^3/uL (0-0.2); Basophils % (auto) 0.4 % (0.0-2.0); Eosinophils # (auto) 0 10 ^3/uL (0-0.8); Eosinophils % (auto) 0.5 % (0.0-7.0); Hematocrit 26.9 % (41.0-53.0); Hemoglobin 8.9 g/dL (13.5-17.5); Lymphocytes # (auto) 0.5 10 ^3/uL (0.4-5.4); Lymphocytes % (auto) 5.4 % (10.0-50.0); Mean Corpuscular Hemoglobin 29.9 pg (28.0-32.0); Mean Corpuscular Volume 90.4 fL (80.0-100.0); Monocytes # (auto) 1.1 10 ^3/uL (0-1.3); Monocytes % (auto) 12.8 % (0.0-12.0); Neutrophils # (auto) 6.8 10 ^3/uL (1.6-8.6); Neutrophils % (auto) 80.9 % (37.0-80.0); Platelet Count (auto) 189 10^3/uL (140-450); Red Blood Cells 2.98 10^6/uL (4.5-5.90); Red Cell Distribution Width 15.2 % (11.8-14.3); White Blood Cell 8.4 10^3/uL (4.4-10.8)
[2020-01-09 06:31] LABS: Calcium 7.7 mg/dL (8.5-10.1); Magnesium 1.9 mg/dL (1.6-2.6); Potassium 4.3 mmol/L (3.5-5.1)
[2020-01-09] MEDS ORDERED: SODIUM CHL 0.9% 1000 ML BAG XX ONE (07:15)
--- NOTE | 2020-01-09 07:15 | NUR ---
Opening Note Received report from ecosystem ecology professor RN. Patient is awake, alert and oriented x4. No signs or symptoms of distress noted at this time. Dialysis in progress. Reviewed plan of care with patient,patient verbalized understanding. Bed in low and locked position, call light within reach. Will continue to monitor Q1 hour and PRN.
[2020-01-09] MEDS: SEVELAMER 800 MG TAB PO SCH ×3 (08:00→18:38)
--- NOTE | 2020-01-09 08:05 | NUR ---
EKG completed Placed in patients chart per Dr. Melendez's orders.
--- NOTE | 2020-01-09 08:13 | NUR ---
Dr. Melendez at bedside Discussing plan of care with patient and this RN. Instructed this RN to order ECHO and to hold Eliquis. Patient aware of plan of care, verbalized understanding. Will implement new orders. Will continue to monitor.
[2020-01-09 09:00] VITALS: BP 122/79
--- NOTE | 2020-01-09 10:31 | NUR ---
Dialysis Complete Dialysis completed, per RN 2.2L removed, blood pressure 128/85. Patient tolerated well. Bed in low and locked position, call light within reach. Will continue to monitor Q1 hour and PRN.
[2020-01-09] MEDS: AMIODARONE HCL 200 MG TAB PO SCH (10:40)
[2020-01-09] MEDS: cefTRIAXone 1GM/50ML D5W 50 ML IV SCH (10:40)
[2020-01-09] MEDS ORDERED: OPTISON 3ml Vial for INJ IV ONE (11:34)
--- NOTE | 2020-01-09 11:35 | NUR ---
automatic equipment technician at bedside
[2020-01-09 12:58] VITALS: BP 119/74
[2020-01-09] MEDS: VENLAFAXINE HCL 37.5MG TABLET PO SCH (13:01)
[2020-01-09] MEDS: MULTIPLE VITAMINS W/ MINERALS TAB PO SCH (13:01)
[2020-01-09] MEDS: AZITHROMYCIN 500MG/ 250ML 250 ML IV SCH (13:01)
[2020-01-09] MEDS: FAMOTIDINE 20 MG TAB PO SCH (13:01)
[2020-01-09] MEDS: METOPROLOL TARTRATE 25 MG TAB PO SCH (13:02)
[2020-01-09] MEDS: FUROSEMIDE 40 MG TAB PO SCH (13:02)
[2020-01-09 17:13] VITALS: BP 120/67
--- NOTE | 2020-01-09 19:17 | NUR ---
Closing Note Report given to help desk administrator RN. No signs or symptoms of distress noted at this time.
[2020-01-09] MEDS ORDERED: EPOETIN ALFA 10,000 UNIT/1 ML VIAL SC ONE (21:00)
[2020-01-09 21:31] VITALS: BP 130/77
[2020-01-09] MEDS: ATORVASTATIN 20 MG TAB PO SCH (21:31)
[2020-01-10] MEDS: VENLAFAXINE HCL 37.5MG TABLET PO SCH ×2 (00:45→12:11)
[2020-01-10] MEDS: METOPROLOL TARTRATE 25 MG TAB PO SCH (00:46)
[2020-01-10 05:53] VITALS: BP 123/69
[2020-01-10 06:38] LABS: Basophils # (auto) 0 10 ^3/uL (0-0.2); Basophils % (auto) 0.6 % (0.0-2.0); Eosinophils # (auto) 0.1 10 ^3/uL (0-0.8); Eosinophils % (auto) 0.8 % (0.0-7.0); Hematocrit 26.1 % (41.0-53.0); Hemoglobin 8.8 g/dL (13.5-17.5); Lymphocytes # (auto) 0.4 10 ^3/uL (0.4-5.4); Lymphocytes % (auto) 5.9 % (10.0-50.0); Mean Corpuscular Hemoglobin 30.2 pg (28.0-32.0); Mean Corpuscular Hgb Conc. 33.6 g/dL (32.0-36.0); Mean Corpuscular Volume 89.9 fL (80.0-100.0); Monocytes # (auto) 0.9 10 ^3/uL (0-1.3); Monocytes % (auto) 13.6 % (0.0-12.0); Neutrophils # (auto) 5.4 10 ^3/uL (1.6-8.6); Neutrophils % (auto) 79.1 % (37.0-80.0); Nucleated Red Blood Cells % 0.1 %; Platelet Count (auto) 202 10^3/uL (140-450); Red Cell Distribution Width 15.4 % (11.8-14.3); White Blood Cell 6.9 10^3/uL (4.4-10.8)
[2020-01-10] MEDS ORDERED: DEXTROSE (50%) 50ML SYRG IV PRN (06:45)
[2020-01-10 06:50] LABS: Calcium 7.9 mg/dL (8.5-10.1); Potassium 4.6 mmol/L (3.5-5.1)
[2020-01-10 06:53] LABS: BUN/Creatinine Ratio 4.4
[2020-01-10] MEDS: InsuLIN REG 1unit/0.01ml Soln (100units/ml) SC SCH ×4 (07:00→22:28)
[2020-01-10] MEDS: ACCU-CHEK COMFORT CURVE STRIP VI SCH ×4 (07:00→22:25)
--- NOTE | 2020-01-10 07:35 | NUR ---
Opening Note Received report from night coordinator RN. Patient is awake, alert and oriented x4. No signs or symptoms of distress noted at this time. Patient denies pain or shortness of breath at this time. Reviewed plan of care with patient,patient verbalized understanding. Bed in low and locked position, call light within reach. Will continue to monitor Q1 hour and PRN.
[2020-01-10 09:00] VITALS: BP 127/73
[2020-01-10] MEDS: SEVELAMER 800 MG TAB PO SCH ×3 (09:53→18:11)
[2020-01-10] MEDS: cefTRIAXone 1GM/50ML D5W 50 ML IV SCH (09:54)
[2020-01-10] MEDS: AMIODARONE HCL 200 MG TAB PO SCH (10:11)
--- NOTE | 2020-01-10 11:00 | NUR ---
WOUND CARE NOTE: WOUND CARE TEAM IN TO SEE PATIENT PER WOUND CARE REQUEST. BEDSIDE NURSE NOTED WOUNDS TO BILATERAL FEET UPON ADMISSION. PHOTOGRAPHS TAKEN AT THAT TIME. [facility]. PATIENT HAS A JAKOB SCORE OF 22. PATIENT IS FULLY AMBULATORY AND ABLE TO SELF TURN/REPOSITION SELF. PATIENT HAS CALLOUSED DIABETIC FOOT ULCERS TO PLANTAR ASPECT OF RIGHT FOOT AND PLANTAR ASPECT OF LEFT GREAT TOE. WOUND AREAS NOTED TO BE DRY AND INTACT WITH DRY DRESSING. NO OTHER SKIN INTEGRITY ISSUES NOTED. RECOMMEND: EOD DRY DRESSING CHANGE WITH OPTIFOAM GENTLE DRESSING TO AFFECTED AREAS ON BILATERAL FEET. SKIN/WOUND CARE PLAN. NO FURTHER WOUND CARE REQUIRED. Addendum: 01/10/20 at 1557 by ANDREW KAPADIA RN RN Amended: Links added.
--- NOTE | 2020-01-10 12:07 | NUR ---
Dr. Sen at bedside Discussing plan of care with patient and this RN. Patient is possible transfer to [place] for procedure with Dr. Melendez. Awaiting confirmation. Patient verbalized understanding. Will continue to monitor Q1 hour and PRN.
[2020-01-10] MEDS: FAMOTIDINE 20 MG TAB PO SCH (12:11)
[2020-01-10] MEDS: MULTIPLE VITAMINS W/ MINERALS TAB PO SCH (12:11)
[2020-01-10] MEDS ORDERED: METOPROLOL TARTRATE 25 MG TAB PO ONE (12:15)
[2020-01-10] MEDS ORDERED: HEPARIN DRIP/D5W 100UNITS/ML 250 ML IV SCH ×2 (12:24→14:15)
[2020-01-10 13:00] VITALS: BP_SYST 110; BP_SYST 118; BP_DIAS 52; BP_DIAS 67
[2020-01-10 13:14] LABS: Basophils # (auto) 0 10 ^3/uL (0-0.2); Basophils % (auto) 0.4 % (0.0-2.0); Eosinophils # (auto) 0.1 10 ^3/uL (0-0.8); Eosinophils % (auto) 1.4 % (0.0-7.0); Hematocrit 29.1 % (41.0-53.0); Hemoglobin 9.1 g/dL (13.5-17.5); Lymphocytes # (auto) 0.4 10 ^3/uL (0.4-5.4); Lymphocytes % (auto) 6.1 % (10.0-50.0); Mean Corpuscular Hemoglobin 28.5 pg (28.0-32.0); Mean Corpuscular Hgb Conc. 31.2 g/dL (32.0-36.0); Mean Corpuscular Volume 91.4 fL (80.0-100.0); Monocytes # (auto) 0.7 10 ^3/uL (0-1.3); Monocytes % (auto) 10.5 % (0.0-12.0); Neutrophils # (auto) 5.5 10 ^3/uL (1.6-8.6); Neutrophils % (auto) 81.6 % (37.0-80.0); Nucleated Red Blood Cells % 0.1 %; Platelet Count (auto) 232 10^3/uL (140-450); Red Blood Cells 3.19 10^6/uL (4.5-5.90); Red Cell Distribution Width 15.6 % (11.8-14.3); White Blood Cell 6.8 10^3/uL (4.4-10.8)
[2020-01-10 13:23] LABS: INR 1.3 (0.9-1.15); Partial Thromboplastin Time 48.4 sec (23.64-32.05)
[2020-01-10] MEDS: FUROSEMIDE 40 MG TAB PO SCH (13:56)
[2020-01-10] MEDS: AZITHROMYCIN 500MG/ 250ML 250 ML IV SCH (13:56)
--- NOTE | 2020-01-10 14:38 | NUR ---
Call from Dr. Mckinley Sen states Dr. Melendez is to come see the patient here and not to transfer yet. Will continue to monitor Q1 hour and PRN.
--- NOTE | 2020-01-10 15:28 | NUR ---
NUTRITION ASSESSMENT NOTES Please refer to link notes of nutrition screen form filed under the intervention section of the plan of care for further details. Est. Energy Needs: 8446-1983 kcal (17-20 kcal/kg BW). Est. Protein Needs: 101-118 gms/day (1.2-1.4 gms/kg Adj.BW). Will continue to monitor pertinent labs and reassess nutrient need prn Addendum: 01/10/20 at [address] Amended: Links added.
--- NOTE | 2020-01-10 15:33 | NUR ---
I faxed transfer order to [facility].
--- NOTE | 2020-01-10 15:49 | NUR ---
I spoke with Emmanuelle at [facility] regarding the transfer order to [facility], she will arrange for MD to MD-they will arrange for bed at [facility] and will call the nurse's station when a bed becomes available-SHARON will set up transportation as well (phone [phone]).
[2020-01-10 17:00] VITALS: BP 110/52
--- NOTE | 2020-01-10 17:30 | NUR ---
Heparin order Called pharmacy to clarify heparin dose. Per Dr. Sen no bolus. Will implement new orders. Will continue to monitor.
--- NOTE | 2020-01-10 19:00 | NUR ---
PATIENT RESTING AT THIS TIME. VERIFIED HEPARIN RATE AT 15.5 ML/HR 1550 UNITS/HR. WILL CONTINUE TO MONITOR.
--- NOTE | 2020-01-10 19:15 | NUR ---
Closing Note Report given to customer support professional RN. No signs or symptoms of distress noted at this time.
[2020-01-10 21:55] VITALS: BP 122/70
[2020-01-10] MEDS: ATORVASTATIN 20 MG TAB PO SCH (22:25)
[2020-01-11] MEDS ORDERED: METOPROLOL TARTRATE 25 MG TAB PO SCH
[2020-01-11 00:02] LABS: INR 1.23 (0.9-1.15); Partial Thromboplastin Time 61.8 sec (23.64-32.05)
[2020-01-11] MEDS: VENLAFAXINE HCL 37.5MG TABLET PO SCH (00:16)
--- NOTE | 2020-01-11 00:24 | NUR ---
APTT RESULT WAS 61.8. THE CURRENT RATE OF 15.5 UNITS/HR IS MAINTAINED PER PROTOCOL.
--- NOTE | 2020-01-11 00:45 | NUR ---
CLARENCE LIMONLUMBER SORTER FROM [facility] CALLED TO NOTIFY OF THE OPEN BED. PATIENT WILL BE GOING TO ROOM 198B. SHE ASKED TO HOLD TRANSFER UNTIL 6AM. I WILL SETUP TRANSPORT FOR THAT TIME. DIRECT NUMBER FOR REPORT IS: [phone]
--- NOTE | 2020-01-11 01:05 | NUR ---
TRANSPORTATION HAS BEEN SETUP WITH [facility]. THEY ESTIMATED PICKUP TIME TO BE 0630.
--- NOTE | 2020-01-11 01:12 | NUR ---
UPDATED [facility] NURSE AT [phone] OF ESTIMATED PICKUP TIME OF 0630.
[2020-01-11 05:00] VITALS: BP 111/69
[2020-01-11 06:03] LABS: Basophils # (auto) 0 10 ^3/uL (0-0.2); Basophils % (auto) 0.7 % (0.0-2.0); Eosinophils # (auto) 0.1 10 ^3/uL (0-0.8); Eosinophils % (auto) 1.3 % (0.0-7.0); Hematocrit 26.2 % (41.0-53.0); Hemoglobin 8.7 g/dL (13.5-17.5); Lymphocytes # (auto) 0.5 10 ^3/uL (0.4-5.4); Lymphocytes % (auto) 7.6 % (10.0-50.0); Mean Corpuscular Hemoglobin 29.7 pg (28.0-32.0); Mean Corpuscular Hgb Conc. 33.3 g/dL (32.0-36.0); Monocytes # (auto) 0.8 10 ^3/uL (0-1.3); Monocytes % (auto) 12.6 % (0.0-12.0); Neutrophils # (auto) 4.9 10 ^3/uL (1.6-8.6); Neutrophils % (auto) 77.8 % (37.0-80.0); Platelet Count (auto) 217 10^3/uL (140-450); Red Blood Cells 2.94 10^6/uL (4.5-5.90); Red Cell Distribution Width 15.7 % (11.8-14.3); White Blood Cell 6.3 10^3/uL (4.4-10.8)
[2020-01-11 06:04] LABS: Calcium 7.8 mg/dL (8.5-10.1); Magnesium 2.2 mg/dL (1.6-2.6)
[2020-01-11 06:06] LABS: BUN/Creatinine Ratio 5.1
--- NOTE | 2020-01-11 06:42 | NUR ---
[facility] HERE TO TRANSPORT PATIENT TO [facility] ROOM 198B. NO S/S OF DISTRESS AND NO PAIN NOTED. REPORT CALLED TO CHAUNCEY COTTRELL.
[2020-01-11] MEDS ORDERED: SODIUM CHL 0.9% 1000 ML BAG XX ONE (07:00)
[2020-01-11] MEDS ORDERED: EPOETIN ALFA 10,000 UNIT/1 ML VIAL SC ONE (21:00)
== END 2020-01-11 06:25 | disposition short-term general hospital (02) | DRG 291 ==
LOC: ER 10:19 → EDBD 10:19 → TELE 10:20 → TELE-EAST 14:00
PROVIDERS: ADMIT Nurse Practitioner Acute Care; ATTEND Internal Medicine Geriatric Medicine
PROC: 5A1D70Z Performance of Urinary Filtration, Intermittent, Less than 6 Hours Per Day (ICD-10-PCS; principal; 2020-01-09)
DX: I13.2 Hypertensive heart and chronic kidney disease with heart failure and with stage 5 chronic kidney disease, or end stage renal disease (principal); I50.23 Acute on chronic systolic (congestive) heart failure; N18.6 End stage renal disease; J18.9 Pneumonia, unspecified organism; J96.01 Acute respiratory failure with hypoxia; I48.92 Unspecified atrial flutter; I48.91 Unspecified atrial fibrillation; I25.5 Ischemic cardiomyopathy; D63.8 Anemia in other chronic diseases classified elsewhere; E87.6 Hypokalemia; E88.09 Other disorders of plasma-protein metabolism, not elsewhere classified; F32.9 Major depressive disorder, single episode, unspecified; I25.10 Atherosclerotic heart disease of native coronary artery without angina pectoris; I51.3 Intracardiac thrombosis, not elsewhere classified; E66.01 Morbid (severe) obesity due to excess calories; Z79.899 Other long term (current) drug therapy; Z78.9 Other specified health status; Z99.2 Dependence on renal dialysis; Z88.8 Allergy status to other drugs, medicaments and biological substances; Z95.1 Presence of aortocoronary bypass graft; I25.2 Old myocardial infarction; Z90.49 Acquired absence of other specified parts of digestive tract; Z98.61 Coronary angioplasty status; Z68.31 Body mass index [BMI] 31.0-31.9, adult
CPT/HCPCS: 36415; 71045; 80048; 80053; 82728; 82962; 83036; 83735; 84484; 85025; 85379; 85610; 85730; 87081; 87804; 90935; 93005; 93306; G0378; J0696; J0885; J1642; J1815; J2405; Q9956

== ENCOUNTER 2021-03-10 05:10 | Emergency (ER) | payer OTHER, BC ==
[~2021-03-10] VITALS: Ht 180.3 cm; Wt 108.9 kg
[~2021-03-10 05:10] MED LIST changes: +VENL1TAB96 PO; -VENL25TA2 PO
[2021-03-10 05:59] LABS: Basophils # (auto) 0.1 10 ^3/uL (0-0.2); Basophils % (auto) 1.1 % (0.0-2.0); Eosinophils # (auto) 0.1 10 ^3/uL (0-0.8); Eosinophils % (auto) 1.2 % (0.0-7.0); Hematocrit 29.2 % (41.0-53.0); Hemoglobin 10.4 g/dL (13.5-17.5); Lymphocytes # (auto) 0.5 10 ^3/uL (0.4-5.4); Lymphocytes % (auto) 9.6 % (10.0-50.0); Mean Corpuscular Hemoglobin 34.4 pg (28.0-32.0); Mean Corpuscular Hgb Conc. 35.7 g/dL (32.0-36.0); Mean Corpuscular Volume 96.3 fL (80.0-100.0); Monocytes # (auto) 0.5 10 ^3/uL (0-1.3); Monocytes % (auto) 10.1 % (0.0-12.0); Neutrophils # (auto) 3.8 10 ^3/uL (1.6-8.6); Platelet Count (auto) 130 10^3/uL (140-450); Red Blood Cells 3.04 10^6/uL (4.5-5.90); Red Cell Distribution Width 13.2 % (11.8-14.3); White Blood Cell 4.9 10^3/uL (4.4-10.8)
[2021-03-10 06:32] LABS: INR 1.27 (0.9-1.15); Partial Thromboplastin Time 49.2 sec (23.0-31.2)
[2021-03-10 06:42] LABS: Albumin 3.7 g/dL (3.4-5.0); Calcium 7.5 mg/dL (8.5-10.1); Potassium 4.3 mmol/L (3.5-5.1)
[2021-03-10 06:48] LABS: BUN/Creatinine Ratio 5.2; Bilirubin, Total 3.8 mg/dL (0.2-1.0); Phosphorus 3.4 mg/dL (2.5-4.90); Total Protein 8.1 g/dL (6.4-8.2)
[2021-03-10 07:20] VITALS: BP 113/62
== END 2021-03-10 08:23 | disposition home or self-care (01) ==
LOC: ER 05:10
DX: E11.22 Type 2 diabetes mellitus with diabetic chronic kidney disease (principal); I13.2 Hypertensive heart and chronic kidney disease with heart failure and with stage 5 chronic kidney disease, or end stage renal disease; I50.9 Heart failure, unspecified; N18.6 End stage renal disease; I25.10 Atherosclerotic heart disease of native coronary artery without angina pectoris; R09.89 Other specified symptoms and signs involving the circulatory and respiratory systems; I48.0 Paroxysmal atrial fibrillation; D63.1 Anemia in chronic kidney disease; D69.6 Thrombocytopenia, unspecified; E80.6 Other disorders of bilirubin metabolism; Z95.810 Presence of automatic (implantable) cardiac defibrillator; Z99.2 Dependence on renal dialysis; Z20.822 Contact with and (suspected) exposure to COVID-19
CPT/HCPCS: 36415; 71045; 80053; 83605; 83880; 84100; 84484; 85025; 85610; 85730; 87426; 93005